=== PATIENT | female | born 1955 | race Caucasian/White ===

== ENCOUNTER 2024-07-17 08:33 | Inpatient (IN) | payer MEDICARE, BC ==
[2024-07-17] MEDS ORDERED: LIDOCAINE 2%-EPI 1:100,000 30 ML VIAL ONE (09:27)
[2024-07-17] MEDS ORDERED: dexaMETHasone SOD PHOSPHATE 2 ML ONE (09:27)
[2024-07-17] MEDS ORDERED: VANCOMYCIN 1 GM VIAL ONE (09:27)
[2024-07-17] MEDS ORDERED: OXYMETAZOLINE HCL NASAL SPRAY 30 ML BOTTLE NS ONE (09:27)
[2024-07-17] MEDS ORDERED: Magnesium 1 GM/2 ML VIAL ONE (09:51)
[2024-07-17] MEDS ORDERED: FENTANYL PF 100MCG/2ML AMPUL ONE (09:51)
[2024-07-17] MEDS ORDERED: MIDAZOLAM HCL 2 MG/2ML VIAL ONE (09:51)
[2024-07-17] MEDS ORDERED: SUCCINYLCHOLINE CHLORIDE 20 MG/ML VIAL ONE (09:51)
[2024-07-17] MEDS ORDERED: LIDOCAINE 2% JEL UROJET 10 ML MM ONE (09:51)
[2024-07-17] MEDS ORDERED: FAMOTIDINE/PF INJ 20 MG/2 ML VIAL IV ONE (09:51)
[2024-07-17 11:00] VITALS: BP 152/88; O2SAT 97
[2024-07-17] MEDS ORDERED: ONDANSETRON HCL/PF 4 MG/2 ML VIAL IV PRN (13:00)
[2024-07-17] MEDS ORDERED: ACETAMINOPHEN 325 MG TABLET PO PRN ×2 (13:30→16:00)
[2024-07-17] MEDS ORDERED: METO-357 PO (13:39)
[2024-07-17] MEDS ORDERED: ROSU10TA2 PO (13:39)
[2024-07-17] MEDS ORDERED: AMLO-383 PO (13:39)
[2024-07-17] MEDS ORDERED: AMOX1TAB16 PO (13:39)
[2024-07-17 13:40] VITALS: BP 152/88; TEMP 97.7; O2SAT 97
[2024-07-17] MEDS: HYDROMORPHONE 1 MG/1 ML DISP.SYRIN IV PRN (14:08)
[2024-07-17] MEDS: IV NS 0.9% 1,000 ML BAG IV PRN (14:12)
[2024-07-17 16:00] VITALS: BP 117/71; TEMP 97.7; O2SAT 95
[2024-07-17] MEDS ORDERED: Z GUARD REMEDY 4 OZ OINT TP PRN (16:00)
[2024-07-17] MEDS ORDERED: ONDANSETRON HCL/PF 4 MG/2 ML VIAL IVP PRN (16:00)
[2024-07-17 20:00] VITALS: BP 130/78; TEMP 97.5; O2SAT 95
[2024-07-17] MEDS: VANCOMYCIN 1 GM in IV D5W 250ml IV SCH (21:02)
[2024-07-17] MEDS: ATORVASTATIN 10 MG TABLET PO SCH (21:02)
[2024-07-18 06:48] LABS: HEMATOCRIT 36 % (33-45); HEMOGLOBIN 12.2 g/dL (11.5-14.8); LYMPHOCYTES # (AUTO) 1.5 K/uL (0.8-4.8); LYMPHOCYTES % (AUTO) 11.1 % (20.0-44.0); MEAN CORPUSCULAR HEMOGLOBIN 30 PG (26.0-33.0); MEAN CORPUSCULAR HGB CONC 34 g/dl (31.0-36.0); MEAN CORPUSCULAR VOLUME 89 fL (82-100); MONOCYTES # (AUTO) 0.5 K/uL (0.1-1.30); MONOCYTES % (AUTO) 3.4 % (2.0-12.0); NEUTROPHILS # (AUTO) 11.7 K/uL (1.8-8.9); NEUTROPHILS % (AUTO) 85.5 % (43.0-81.0); PLATELET COUNT (AUTO) 259 K/uL (150-450); RED BLOOD CELL COUNT(AUTO) 4.06 MIL/uL (4.0-5.2); RED CELL DISTRIBUTION WIDTH 13.7 % (11.5-15.0); WHITE BLOOD COUNT (AUTO) 13.7 K/uL (4.3-11.0)
[2024-07-18 07:04] LABS: CALCIUM, SERUM 9.2 mg/dL (8.5-10.1); CREATININE 0.6 mg/dL (0.6-1.3); MAGNESIUM 2.2 mg/dL (1.8-2.4); PHOSPHORUS 3.8 mg/dL (2.5-4.9)
[2024-07-18 07:30] VITALS: BP 120/70; TEMP 97.9; O2SAT 95
[2024-07-18 08:56] VITALS: BP 120/82
[2024-07-18] MEDS: VALSARTAN 80 MG TABLET PO SCH (08:56)
[2024-07-18] MEDS: METOPROLOL SUCCINATE 50 MG TAB.SR.24H PO SCH (08:56)
[2024-07-18] MEDS: AMLODIPINE BESYLATE 5 MG TABLET PO SCH (08:56)
== END 2024-07-18 15:24 | disposition home or self-care (01) | DRG 142 ==
LOC: DS 08:33 → MED 12:30
PROVIDERS: ADMIT Nurse Practitioner Acute Care; ATTEND Nurse Practitioner Acute Care
PROC: 0N5R0ZZ Destruction of Maxilla, Open Approach (ICD-10-PCS; principal; 2024-07-17)
PROC: 0NSR04Z Reposition Maxilla with Internal Fixation Device, Open Approach (ICD-10-PCS; 2024-07-17)
PROC: 0NUR0JZ Supplement Maxilla with Synthetic Substitute, Open Approach (ICD-10-PCS; 2024-07-17)
PROC: 0NUR07Z Supplement Maxilla with Autologous Tissue Substitute, Open Approach (ICD-10-PCS; 2024-07-17)
DX: S02.40CA Maxillary fracture, right side, initial encounter for closed fracture (principal); M27.2 Inflammatory conditions of jaws; D16.4 Benign neoplasm of bones of skull and face; E78.5 Hyperlipidemia, unspecified; I10 Essential (primary) hypertension; J32.0 Chronic maxillary sinusitis; X58.XXXA Exposure to other specified factors, initial encounter; Y93.9 Activity, unspecified; Y92.009 Unspecified place in unspecified non-institutional (private) residence as the place of occurrence of the external cause
CPT/HCPCS: 36415; 80048-TC; 83735-TC; 84100-TC; 85025-TC; 87102-TC; A4223; A4338; C1713; G0378; J0330; J1100; J1171; J2250; J2405; J2704; J3010; J3370; J3475; J3490; J7030; J7060